=== PATIENT | male | born 2000 | race Two or more races ===

== ENCOUNTER 2019-10-29 10:55 | Emergency (ER) | payer OTHER ==
[~2019-10-29] VITALS: Ht 180.3 cm; Wt 82.7 kg
[2019-10-29 10:56] VITALS: BP 133/71
[2019-10-29] MEDS ORDERED: IBUPROFEN 200 MG (11:03)
--- NOTE | 2019-10-29 11:27 | REP ---
Clinical: Trauma. Fall. Technique: AP, lateral, bilateral oblique views of the left ankle. Findings: Lateral swelling is appreciated. A small corticated density inferior to the fibular head may represent old injury and less likely acute avulsion fracture fragment. Correlation and follow up may be warranted. The ankle mortise is intact. Impression: Lateral swelling. As above. Electronically Signed by Sae Lan MD 10/29/2019 11:18 A
[2019-10-29] MEDS ORDERED: IBUP-1022 PO (12:49)
== END 2019-10-29 13:05 | disposition home or self-care (01) ==
LOC: M ED 10:55
DX: S93.492A Sprain of other ligament of left ankle, initial encounter (principal); X50.0XXA Overexertion from strenuous movement or load, initial encounter; Y92.9 Unspecified place or not applicable

== ENCOUNTER → 2024-06-29 | Outpatient (CLI) | payer OTHER ==
[~2024-06-29] MED LIST: IBUP-1022 PO; IBUPROFEN 200 MG
== END ==
LOC: M RAD 07:36
DX: M43.16 Spondylolisthesis, lumbar region (principal); M51.369 Other intervertebral disc degeneration, lumbar region without mention of lumbar back pain or lower extremity pain